=== PATIENT | male | born 1945 | race Caucasian/White ===

== ENCOUNTER 2018-04-03 06:38 | Inpatient (IN) ==
--- NOTE | 2018-04-02 21:56 | Discharge Summary ---
<Sung Colon - Last Filed: 04/03/18 07:54> Orders not resulted at time of discharge: Pending orders 04/03/18 00:01 XR shoulder complete RT [XR] Routine H/H [Hemoglobin and Hematocrit] [HEME] Routine 04/03/18 07:48 US anesthesia pain block [US] Routine Date of Encounter: 04/03/18 - Discharge Diagnosis (1) Obesity (BMI 30.0-34.9) Priority: Secondary Status: Chronic (2) Balance disorder Priority: Secondary Status: Chronic (3) Cardiomyopathy Priority: Secondary Status: Chronic Qualifiers: Cardiomyopathy type: unspecified Qualified Code(s): I42.9 - Cardiomyopathy , unspecified (4) Decreased dexterity Priority: Secondary Status: Chronic (5) PFO (patent foramen ovale) Priority: Secondary Status: Chronic (6) Rotator cuff arthropathy Priority: Primary Status: Chronic Qualifiers: Laterality: right Qualified Code(s): M12.811 - Other specific arthropathies , not elsewhere classified, right shoulder (7) COPD (chronic obstructive pulmonary disease) Priority: Secondary Status: Chronic Qualifiers: COPD type: unspecified COPD Qualified Code(s): J44.9 - Chronic obstructive pulmonary disease, unspecified (8) Cervical stenosis of spinal canal Priority: Secondary Status: Chronic (9) GERD (gastroesophageal reflux disease) Priority: Secondary Status: Chronic Qualifiers: Esophagitis presence: without esophagitis Qualified Code(s): K21.9 - Gastro -esophageal reflux disease without esophagitis (10) History of lung cancer Priority: Secondary Status: Chronic (11) Hyperlipidemia Priority: Secondary Status: Chronic Qualifiers: Hyperlipidemia type: mixed hyperlipidemia Qualified Code(s): E78.2 - Mixed hyperlipidemia (12) Hypertension Priority: Secondary Status: Chronic Qualifiers: Hypertension type: essential hypertension Qualified Code(s): I10 - Essential (primary) hypertension (13) Status post reverse total arthroplasty of right shoulder Priority: Primary Status: Acute - Hospital Course Hospital course: Mr. Pino is a 73 year old male - Time Spent with Patient Total time spent providing and/or coordinating discharge services: - Discharge Medications Home Medications: Atorvastatin Calcium [Lipitor] 20 mg PO DAILY 12/31/15 [History] Omeprazole [PriLOSEC] 40 mg PO DAILY 12/31/15 [History] Vit C/E/Zn/Coppr/Lutein/Zeaxan [Preservision Areds 2 Softgel] 1 each PO DAILY [History] Metoprolol XL (24 HR) Succ [Toprol Xl] 12.5 mg PO DAILY 06/02/16 [History] Albuterol Sulfate [Ventolin Hfa] 2 puff IH Q4H PRN 05/09/17 [History] Cholecalciferol (Vitamin D3) [Vitamin D3] 5,000 unit PO DAILY 05/09/17 [History] Latanoprost [Xalatan] 1 drop OP HS 05/09/17 [History] OxyCODONE Immed Rel [Roxicodone 5 MG] 5 mg PO Q6HR PRN 7 Days #28 tablet [Rx] Albuterol Neb [Proventil Neb] 2.5 mg IH Q4-6H PRN 04/03/18 [History] Aspirin [Adult Aspirin Regimen] 81 mg PO DAILY 04/03/18 [History] Gabapentin [Neurontin] 300 mg PO BID PRN 04/03/18 [History] Umeclidinium [place] [Incruse Ellipta] 1 puff IH DAILY 04/03/18 [History] Allergies/Adverse Reactions: 3 Allergy/AdvReac Type Severity Reaction Status Date / Time ceftriaxone [From Rocephin] Allergy elevated Verified 04/03/18 08:57 blood pressure Beta-Blockers AdvReac pulse Verified 04/03/18 08:57 (Beta-Adrenergic Bloc dropped steroids Allergy elevated Uncoded 04/03/18 08:57 pressures in eyes Primary care physician: Larry Ochoa MD - Patient Status Disposition: Home Health Service Condition: Good - Discharge Instructions Follow Up With: Larry Ochoa MD [Primary Care Provider] - Additional Instructions: Discharge Instructions: Total Shoulder Please call [facility] ([phone]), your Primary Care Physician, or report to the Emergency Room if you have any of the following symptoms: Nausea, vomiting, fever greater that 101.5, swelling, chest pain, shortness of breath, increased pain/redness/drainage/odor for your incision site, numbness/ tingling, or any other concerning symptoms. ACTIVITY: Always keep your arm in the sling. Do not raise your arm away from your body. Do not use your arm to help with getting in or out of bed. No weight bearing permitted. Only perform those exercises given to you by your therapist. Incentive Spirometer 10 times an hour. MEDICATIONS: Upon discharge resume your home medications. Take all the medications as prescribed. Take a stool softener if taking narcotic pain medications. Stool softeners are only effective if you drink enough fluids. Drink 6-8 glass of water or fluids a day, unless this is not allowed for another health problem. Despite using stool softeners, if you haven't had a bowel movement in 3 days, please switch to a gentle laxative. Gentle laxatives are sold over the counter. You should have a bowel movement within 24 hours, if not call the office. You will be discharged from the hospital with a prescription for pain medication. You are encouraged to decrease the use of narcotic pain medication as tolerated. Should you require a refill, please call the office. [facility] prescribes narcotic pain medication for only 4-6 weeks after surgery. If you require pain medication beyond this time period, you may be referred to your Primary Care Physician or to the Pain Clinic for further evaluation. Plan ahead for refills on pain medication as many narcotics either need to be picked up at the office or mailed. It is best to call 48-72 hours in advance of needing a prescription refill so you don't run out of medication. To help control the post-operative pain, you may take NSAIDs (Aleve,Advil, Motrin, Ibuprofen, Naprosyn) or Tylenol as prescribed on the bottle in addition to the pain medication. WOUND CARE: Leave the dressing on for 7-10 days. You may change the dressing if it becomes saturated greater than 50%. Do not get the dressing wet at anytime. Wash your hands with antibacterial soap, rinse and dry prior to any wound care. If you have sylvia the visiting nurse or rehab facility can remove the stapes 10-14 days after surgery and place steri-strips across the wound. Leave the steri-strips in place until they fall off on their own. You may let water from the shower run on top of the steri-strips. If you do not have a visiting nurse or rehab facility, you will need to return to the office at 10-14 days for the sylvia to be removed. If you have itching or redness around the dressing call the office. FOLLOW-UP: Please follow up with your surgeon in the orthopedic clinic, as scheduled <Amy Larsen - Last Filed: 04/03/18 15:23> Orders not resulted at time of discharge: Pending orders 04/03/18 00:01 XR shoulder complete RT [XR] Routine H/H [Hemoglobin and Hematocrit] [HEME] Routine Date of Encounter: 04/03/18 - Discharge Diagnosis (1) Rotator cuff arthropathy Priority: Primary Status: Chronic Qualifiers: Laterality: right Qualified Code(s): M12.811 - Other specific arthropathies , not elsewhere classified, right shoulder (2) Status post reverse total arthroplasty of right shoulder Priority: Secondary Status: Acute (3) History of lung cancer Priority: Secondary Status: Chronic (4) COPD (chronic obstructive pulmonary disease) Priority: Secondary Status: Chronic Comments: On 2 L O2 chronically - per [place] Qualifiers: COPD type: unspecified COPD Qualified Code(s): J44.9 - Chronic obstructive pulmonary disease, unspecified (5) GERD (gastroesophageal reflux disease) Priority: Secondary Status: Chronic Qualifiers: Esophagitis presence: without esophagitis Qualified Code(s): K21.9 - Gastro -esophageal reflux disease without esophagitis (6) Hyperlipidemia Priority: Secondary Status: Chronic Qualifiers: Hyperlipidemia type: mixed hyperlipidemia Qualified Code(s): E78.2 - Mixed hyperlipidemia (7) Cervical stenosis of spinal canal Priority: Secondary Status: Chronic (8) Hypertension Priority: Secondary Status: Chronic Qualifiers: Hypertension type: essential hypertension Qualified Code(s): I10 - Essential (primary) hypertension (9) Obesity (BMI 30.0-34.9) Status: Chronic (10) Cardiomyopathy Priority: Secondary Status: Chronic Comments: Per last report 12/2015: (3) Cardiomyopathy Current Visit: Yes Status: Acute Per Cardiology: Echocardiogram completed for concerns of possible CVA. EF 45%, no previous EF available. Does have mild diastolic dysfunction, mildly dilated left atrium, evidence of PFO with agitated saline contrast study, no significant valvular dysfunction, mild pulmonary hypertension. Last stress test reportedly 2008. Asymptomatic and euvolemic on exam. No ECG available for review, will obtain. Discussed with Dr. Oliveros, recs to f/u as outpatient, will s/o, re-consult PRN , patient and verbalized understanding and agree with plan. Qualifiers: Cardiomyopathy type: unspecified Qualified Code(s): I42.9 - Cardiomyopathy , unspecified (11) Tobacco use Priority: Secondary Status: Chronic - Hospital Course Hospital course: Mr. Pino is a 73 year old male - Time Spent with Patient Total time spent providing and/or coordinating discharge services: Primary care physician: Larry Ochoa MD <Camryn Miller - Last Filed: 04/04/18 20:32> Orders not resulted at time of discharge: Pending orders 04/03/18 07:48 US anesthesia pain block [US] Routine Date of Encounter: 04/04/18 Time of Encounter: 12:20 - Discharge Diagnosis (1) Status post reverse total arthroplasty of right shoulder Priority: Primary Status: Acute (2) Acute blood loss anemia Priority: Secondary Status: Acute (3) Dizziness Priority: Secondary Status: Acute (4) Balance disorder Priority: Secondary Status: Chronic (5) COPD (chronic obstructive pulmonary disease) Priority: Secondary Status: Chronic Qualifiers: COPD type: unspecified COPD Qualified Code(s): J44.9 - Chronic obstructive pulmonary disease, unspecified (6) Cardiomyopathy Priority: Secondary Status: Chronic Qualifiers: Cardiomyopathy type: unspecified Qualified Code(s): I42.9 - Cardiomyopathy , unspecified (7) Cervical stenosis of spinal canal Priority: Secondary Status: Chronic (8) Decreased dexterity Priority: Secondary Status: Chronic (9) GERD (gastroesophageal reflux disease) Priority: Secondary Status: Chronic Qualifiers: Esophagitis presence: without esophagitis Qualified Code(s): K21.9 - Gastro -esophageal reflux disease without esophagitis (10) History of lung cancer Priority: Secondary Status: Chronic (11) Hyperlipidemia Priority: Secondary Status: Chronic Qualifiers: Hyperlipidemia type: mixed hyperlipidemia Qualified Code(s): E78.2 - Mixed hyperlipidemia (12) Hypertension Priority: Secondary Status: Chronic Qualifiers: Hypertension type: essential hypertension Qualified Code(s): I10 - Essential (primary) hypertension (13) Obesity (BMI 30.0-34.9) Priority: Secondary Status: Chronic (14) PFO (patent foramen ovale) Priority: Secondary Status: Chronic (15) Rotator cuff arthropathy Priority: Secondary Status: Chronic Qualifiers: Laterality: right Qualified Code(s): M12.811 - Other specific arthropathies , not elsewhere classified, right shoulder (16) Tobacco use Priority: Secondary Status: Chronic - Hospital Course Hospital course: Mr. Pino is a 73 year old male ~status post - Total Shoulder Replacment Reverse, right with a history of HTN, COPD, GERD, dizziness/balance issue, cardiomyopathy, cervical stenosis, obesity, tobacco use, history of lung cancer. Patient had uneventful postoperative course. Stable for discharge. Patient seen at bedside, without complaints. A&O x 3 Afebrile, vital signs stable. Labs reviewed. H/H 9.9/30.4- stable, asymptomatic Pain control: adequate Participating in PT. All questions and concerns addressed. Educated on use of incentive spirometer. Encouraged ambulation and proper hydration. Patient educated on post-operative restrictions and post-operative care. Assessment and plan: Continue with postoperative care Discharge plan: Home , discharge today with home health therapy. - Time Spent with Patient Total time spent providing and/or coordinating discharge services: Date of admission: 04/03/18 10:36 Primary care physician: Larry Ochoa MD Consults: 04/03/18 10:49 Consult to Occupational Therapy [CONS] Routine Comment: post shoulder surgery Reason for Consult: post shoulder surgery Does patient have active BEDREST order?: No Is patient medically & hemodynamically stable?: Yes Consult to Physical Therapy [CONS] Routine Comment: post shoulder surgery Reason for Consult: post shoulder surgery Does patient have active BEDREST order?: No Is patient medically & hemodynamically stable?: Yes RT Post Op Consult [CONS] Routine 04/04/18 12:41 Consult to Self Propelled Mining Machine Operator [CONS] Routine Reason for SW Consult: home health on / - [place] per patient Discharging clinician: Sung Colon Anticipated date of discharge: 04/04/18 Labs on day of discharge: Labs from last 24 hours 04/04/18 02:04 Hgb 9.9 L D Hct 30.4 L - Impressions ITS Impressions Shoulder X-Ray 04/03/18 00:01 IMPRESSION: 1. Status post reverse right glenohumeral arthroplasty without hardware failure or fracture. 2. Gas in the soft tissues compatible with recent operative change. 3. No unexpected retained foreign body is evident. D/ / Chau Jama / Chau Jama Interpreting Provider: Chau Jama - Patient Status Overall status at discharge: patient is back to baseline - Diet and Activity Activity: as per physical therapy Diet: advance to your usual diet
[2018-04-03] MEDS ORDERED: Lidocaine -MPF 4% 5 ML AMPUL ONE (07:04)
[2018-04-03] MEDS ORDERED: Ondansetron 4 MG/2 ML VIAL ONE (07:05)
[2018-04-03] MEDS ORDERED: Lidocaine -MPF 2% 2 ML VIAL ONE (07:05)
[2018-04-03] MEDS ORDERED: Dexamethasone 4 MG/ML VIAL ONE (07:05)
[2018-04-03] MEDS ORDERED: *HR* Succinylcholine 200 MG/10 ML VIAL IVP ONE (07:05)
[2018-04-03] MEDS ORDERED: *HR* FentaNYL (PF) 100 MCG/2 ML VIAL ONE (07:06)
[2018-04-03] MEDS ORDERED: *HR* Propofol 200 MG/20 ML VIAL IVP ONE (07:06)
[2018-04-03] MEDS ORDERED: *HR* Midazolam HCl 2 MG/2 ML VIAL ONE (07:06)
[2018-04-03] MEDS ORDERED: *HR* PHENYLEPHRINE 1,000 MCG/10 ML SYRINGE IVP ONE (07:10)
[2018-04-03] MEDS ORDERED: Ringers Solution, Lactated 1,000 ML IVC SCH (07:15)
[2018-04-03] MEDS ORDERED: Clindamycin 900 MG/50 ML 900 MG/50 ML IV.SOLN IVPB ONE (07:17)
[2018-04-03] MEDS ORDERED: Bupivacaine/Clonidine Syringe 1 EACH SYRINGE ONE (07:46)
[2018-04-03] MEDS ORDERED: ROPIVACAINE HCL/PF 0.5% 30 ML VIAL ONE (07:46)
[2018-04-03] MEDS ORDERED: Acetaminophen IV 1,000 MG/100 ML INFUS..BTL IVPB ONE (07:47)
[2018-04-03] MEDS ORDERED: Famotidine 20 MG/2 ML VIAL IVP ONE (07:47)
[2018-04-03] MEDS: Albuterol 2.5 MG/3 ML NEBULIZER IH ONE ×2 (07:48→07:50)
--- NOTE | 2018-04-03 07:54 | History & Physical Report ---
Date of Encounter: 04/03/18 Time of Encounter: 07:54 24 Hour HP Update - Instructions Instructions: If the History and Physical is less than 30 days old and was completed prior to A.M. admission and or procedure and has NOT been updated on calendar day of procedure please complete this update prior to performing procedure. - Update Patient reports changes in Medical Condition: No Changes in examination, assessment, or condition: No Changes in Medication: No Preop tests/diagnostics Reviewed: Yes Surgery Remains Indicated: Yes Consent for Planned Operative Procedure(s) Verified: Yes - Pre-Operative Checklist Preoperative Checklist Indicated: No Prophylactic Antibiotic Ordered: Yes Is VTE Prophylaxis Indicated?: Yes
--- NOTE | 2018-04-03 07:54 | Anesthesia Evaluation PreOp ---
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 History: Denies Any Significant HX Other Medical History: Denies Any Significant HX Anesthesia History: No Prior Anesthetic Complications Alcohol Use: none Drug use: none Medications and Allergies Atorvastatin Calcium [Lipitor] 20 mg PO DAILY 12/31/15 [History] Lisinopril [Zestril] 10 mg PO DAILY 12/31/15 [History] Omeprazole [PriLOSEC] 40 mg PO DAILY 12/31/15 [History] Vit C/E/Zn/Coppr/Lutein/Zeaxan [Preservision Areds 2 Softgel] 1 each PO DAILY [History] Aspirin [Lo-Dose Aspirin EC] 81 mg PO DAILY 06/02/16 [History] Metoprolol XL (24 HR) Succ [Toprol Xl] 12.5 mg PO DAILY 06/02/16 [History] Pyridostigmine Br [Mestinon] 60 mg PO QID 06/02/16 [History] Albuterol Sulfate [Ventolin Hfa] 2 puff IH Q4H PRN 05/09/17 [History] Cholecalciferol (Vitamin D3) [Vitamin D3] 5,000 unit PO DAILY 05/09/17 [History] Latanoprost [Xalatan] 1 drop OP HS 05/09/17 [History] Prochlorperazine Maleate [Compazine] 10 mg PO Q6HR PRN 05/09/17 [History] Tiotropium [Spiriva] 1 puff IH DAILY 05/09/17 [History] Ondansetron HCl [Zofran] 4 mg PO Q8H PRN 05/28/17 [History] OxyCODONE Immed Rel [Roxicodone 5 MG] 5 mg PO Q6HR PRN 7 Days #28 tablet [Rx] 3 Allergy/AdvReac Type Severity Reaction Status Date / Time ceftriaxone [From Rocephin] Allergy elevated Verified 03/27/18 11:48 blood pressure Beta-Blockers AdvReac pulse Verified 03/27/18 11:48 (Beta-Adrenergic Bloc dropped steroids Allergy elevated Uncoded 03/27/18 11:48 pressures in eyes - Meds/Allergy Pre-op Review Medications Reviewed: Yes Allergies Reviewed: Yes Beta Blockers on Current Med List: Yes (Took Metoprolol today 0500) Anesthesia Results - Labs Laboratory Tests 03/27/18 03/27/18 03/27/18 12:02 12:02 12:02 Hgb 11.3 L Hct 35.6 L Plt Count 233 PT 10.4 INR 0.9 APTT 29.4 Sodium 142 Potassium 4.1 BUN 24 H Creatinine 1.05 - Imaging EKG: report reviewed (SR) Additional studies: ECHO EF 45% Anesthesia Exam O2 Sat Height 1.68 m Height 1.68 m Weight 89.811 kg Weight 89.811 kg O2 Sat by Pulse Oximetry 98 Vital Signs Temp Pulse Resp BP Pulse Ox 98.9 F 66 18 149/84 98 04/03/18 06:56 04/03/18 06:56 04/03/18 06:56 04/03/18 06:56 04/03/18 06:56 Height: 5'6 Weight: 198 lbs NPO (# of Hours): MN Pain Scale: 0 - HEENT Pupil (Motor): Pupils equal, EOMI Oral Opening: Less than or equal to 3 - HALFTONE OPERATOR LOC: Oriented HALFTONE OPERATOR Motor: Normal RUE, Normal LUE, Normal Face, Deficit RLE (generalized weakness), Deficit LLE HALFTONE OPERATOR Sensory: Normal: RUE, LUE, RLE, LLE, Face - Cardiac Rhythm: Regular Murmur: None JVD: No Carotid Bruit: No - Pulmonary Breath Sounds: bilateral Clear Respiratory Effort: Symmetrical Anesthesia Assess/Plan ASA Score: 4 (HTN COPD home oxygen) Modified [place] Scale for Level of Consciousness: Cooperative, oriented, and tranquil Anesthetic Plan: General, Regional Monitoring Plan: Standard Monitors Recovery Plan: PACU (Discussed GA and RA, agrees to proceed)
--- NOTE | 2018-04-03 08:38 | Anesthesia Procedures ---
Date of Encounter: 04/03/18 Time of Encounter: 08:12 Procedures: Anesthesia - Nerve Block Procedure Date: 04/03/18 Time: 08:12 Allergies/Adv Reactions: Rocephin, Betablockers, Steroids Pre-op Diagnosis: Right Shoulder Rotator Cuff Arthropathy Surgical Procedure: R Total shoulder Arthroplasty Checklist: Correct Patient Identifier, Correct procedure, History checked Correct side: Right Blood Thinner: No Monitor Applied: EKG, BP, Pulse Oximetry Supplemental Oxygen via Nasal Cannula (L/min): 2 Sedation: Versed (mg): 1 Sedation: Fentanyl (mcg): 1 Indication: Post Op Analgesia Pre-op Neuro Deficits: No Block Type: Supraclavicular, Other (Intermediate Cervical Plexus, Intercostobracheal) Catheter placed: No Sterile Technique: Yes Ultrasound used: Yes Anatomy identified: Yes Visual spread of Local: Yes Neuro Stimulation: No Blood on Needle Aspiration: No Smooth Injection of Local: Yes Pain with Injection of Local: No Prep: Chlorhexadine Needle: 22 x 50 mm Stimuplex Local: 0.25% Bupivicaine w/Clonidine 20 mcg/cc (5mL Intermediate Cervical Plexus , 15mL Intercostobracheal), Ropivacaine (30mL 0.5% Ropivacaine for Supraclavicular) Number of Attempts: 1 Complications: None/effective block Vitals: Vital Signs/O2 Sat/Glucose, Most Recent Temp Pulse Resp BP Pulse Ox 98.9 F 82 16 151/87 99 04/03/18 08:07 04/03/18 08:30 04/03/18 08:30 04/03/18 08:30 04/03/18 08:30
[2018-04-03] MEDS ORDERED: Ondansetron 4 MG/2 ML VIAL IVP ONE (09:06)
[2018-04-03] MEDS ORDERED: *HR* OxyCODONE/APAP 5/325 TABLET PO PRN ×2 (09:06→10:49)
[2018-04-03] MEDS ORDERED: *HR* FentaNYL (PF) 100 MCG/2 ML VIAL IVP PRN (09:06)
--- NOTE | 2018-04-03 09:33 | Orthopedic Operative Note ---
Date of procedure: 04/03/18 Pre-op diagnosis: Right shoulder cuff tear arthropathy Post-op diagnosis: same (Right shoulder arthritis) Procedure: Procedure: Total Shoulder Replacment Reverse, right Estimated blood loss: 100 cc Hardware: Metal and polyethylene replacement: Arthrex 28, +2, 30 mm screw glenoid baseplate, 2 4.5 screws. 2 5.5 screw, 42+4 glenosphere, 12 humeral stem , poly insert 6 Exam Under anesthesia: Full motion no instability Procedural Notes: Irreparable tear supraspinatus tendon, grade 4 arthritic changes humeral head. Operative procedure: The patient was brought to the operating room and placed on the operating room table. After general anesthesia was administered the operative shoulder was examined. Findings were noted. The patient was placed in the modified beachchair position. All pressure points were padded appropriately. And the head was stabilized in the neutral position. The operative extremity was prepped and draped in the sterile surgical fashion. The patient received IV antibiotics prior to skin incision. A standard deltopectoral approach was made to the operative shoulder. Incision was made to the skin and subcutaneous tissue,hemo stasis was obtained with Bovie cautery. Using careful blunt dissection the cephalic vein was identified and mobilized medially. The deltopectoral interval was developed and the clavipectoral fascia was incised. The subscap was released off the lesser tuberosity and tagged with #2 FiberWire suture subscap was irreparable. The humerus was dislocated patient noted to have irreparable tear supraspinatus tendon, and the humeral cut was made along the anatomic neck. Patient noted to have grade 4 arthritic changes humeral head. Anterior and posterior Bankart retractors were placed to expose the glenoid. The glenoid guide was seated and the centering hole was made. It was reamed with the appropriate reamer. 28 mm +2, 30 mm screw, was seated and secured with (2) 4.5 screws and 2 5.5 screw. The baseplate was irrigated and dried and the 42+4 Glenosphere was seated and secured with the Calzada taper. The Calzada taper was tested and found to be secure the humerus was redislocated and prepared with the diaphyseal reamers, followed by a broaching process up to the appropriate size 12 in the patient's anatomic version. The metaphyseal reamer was then utilized. Trial reduction found the shoulder to be relocatable. Trial components were removed and the 12 stem was impacted in place in the patient's anatomic version. Trial reduction found the shoulder to be relocatable and stable with the appropriate 6 Ksenia Trial component was removed and the implant was seated and secured the shoulder was reduced. The shoulder had excellent motion and excellent stability and no evidence of dislocation. The deep tissue was irrigated with pulse irrigation. The PA close the shoulder.. The deltopectoral interval was closed with a running #1 PDS suture, subcutaneous tissue was irrigated and closed with 0 PDS suture, the skin was closed with Dermabond. The patient was placed in a sterile dressing, abduction brace and extubated. The patient was then transferred to the recovery room in stable condition. Anesthesia: GETA Surgeon: Sung Colon Was there an assistant county engineer present: No Estimated blood loss (cc): 100 Condition: stable Disposition: PACU
--- NOTE | 2018-04-03 10:28 | Anesthesia Evaluation Post Op ---
Date of Encounter: 04/03/18 Time of Encounter: 10:30 - Vital Signs Vital Signs: Vital Signs/O2 Sat/Glucose, Most Current Temp Pulse Resp BP Pulse Ox 04/03/18 10:19 73 20 126/77 100 04/03/18 10:09 71 22 127/74 97 04/03/18 09:59 69 20 129/84 97 04/03/18 09:49 98.2 F 71 12 124/78 100 04/03/18 08:30 82 16 151/87 99 04/03/18 08:10 75 16 139/74 100 04/03/18 08:07 98.9 F 66 18 149/84 98 04/03/18 06:56 98.9 F 66 18 149/84 98 - Lungs Lungs: Clear Ascult./Percussion - Airway Airway: Non-obstructed - Cardiovascular Regular Rate - Mental Status Mental Status: Alert & Oriented, Answers Appropriately - Pain Pain Scale: 0 - Nausea Vomiting Nausea Vomiting: Not Present - Hydration Hydration: Tolerates oral liquids - Discharge PostOp Status: Transfer Patient to floor
[2018-04-03] MEDS ORDERED: MOM Conc 10 ML UD.LIQ PO PRN (10:49)
[2018-04-03] MEDS ORDERED: Ondansetron 4 MG/2 ML VIAL IVP PRN (10:49)
[2018-04-03] MEDS ORDERED: Naloxone 0.4 MG/ML INJ IVP PRN (10:49)
[2018-04-03] MEDS ORDERED: Sennosides 8.6 MG TABLET PO PRN (10:49)
[2018-04-03] MEDS ORDERED: traMADol 50 MG TABLET PO PRN (10:49)
[2018-04-03] MEDS ORDERED: Gabapentin 300 MG CAPSULE PO PRN (10:49)
[2018-04-03 11:14] LABS: Hematocrit 35.1 % (37.5-50.1); Hemoglobin 11.6 g/dL (12.9-16.9)
[2018-04-03] MEDS: Clindamycin 900 MG/50 ML 900 MG/50 ML IV.SOLN IVPB SCH ×2 (14:10→22:54)
--- NOTE | 2018-04-03 15:30 | Physician Discharge Referral ---
Home Health/Hosp Referral Info Transfer to: Home Health Attending Provider: Provider in Charge Post Discharge: PCP - Diagnosis (1) Rotator cuff arthropathy Status: Chronic (2) Status post reverse total arthroplasty of right shoulder Priority: Primary Status: Acute (3) History of lung cancer Status: Chronic (4) COPD (chronic obstructive pulmonary disease) Status: Chronic (5) GERD (gastroesophageal reflux disease) Status: Chronic (6) Hyperlipidemia Status: Chronic (7) Cervical stenosis of spinal canal Status: Chronic (8) Hypertension Status: Chronic (9) Obesity (BMI 30.0-34.9) Status: Chronic (10) Cardiomyopathy Status: Chronic (11) Tobacco use Status: Chronic - Respiratory Orders Oxygen / L per min (2L per NC - chronic) Smoking Cessation: Smoking cessation has been advised. For more information, call the [facility] Tobacco Quit Line at 1-356-GBEX-NOW. - Diet/Nutrition Diet/Nutrition Orders: Regular - Activity Activity Orders: Up ad valeria, Ambulate - Services Needed Following services are medically necessary services: Nursing, Home Health Aide, Physical Therapy, Occupational Therapy Other Treatments: Opsite dressing, leave intact until first post-operative visit. Zipline in place , plan to remove at post-operative day #14-16. If dressing becomes >50% saturated, contact office, remove dressing and place appropriate dressing in its place. Do not allow for dressing to get wet. Shoulder Precautions x 6 weeks. Apply cold therapy wrap 3-6x/day for 20 minutes at a time. Encourage ambulation throughout the day. Use Incentive spirometer 10x/hour. Elevate affected extremity above heart as tolerated. NWB to affected upper extremity x 6 weeks. Will remove brace at first post-operative appointment. OK to remove during PT/ OT and Home exercises. Continue 2 L O2 at home. - Transfer Medications Home Medications: Atorvastatin Calcium [Lipitor] 20 mg PO DAILY 12/31/15 [History] Omeprazole [PriLOSEC] 40 mg PO DAILY 12/31/15 [History] Vit C/E/Zn/Coppr/Lutein/Zeaxan [Preservision Areds 2 Softgel] 1 each PO DAILY [History] Metoprolol XL (24 HR) Succ [Toprol Xl] 12.5 mg PO DAILY 06/02/16 [History] Albuterol Sulfate [Ventolin Hfa] 2 puff IH Q4H PRN 10/23/17 [History] Cholecalciferol (Vitamin D3) [Vitamin D3] 5,000 unit PO DAILY 05/09/17 [History] Latanoprost [Xalatan] 1 drop OP HS 05/09/17 [History] OxyCODONE Immed Rel [Roxicodone 5 MG] 5 mg PO Q6HR PRN 7 Days #28 tablet [Rx] Albuterol Neb [Proventil Neb] 2.5 mg IH Q4-6H PRN 04/03/18 [History] Aspirin [Adult Aspirin Regimen] 81 mg PO DAILY 04/03/18 [History] Gabapentin [Neurontin] 300 mg PO BID PRN 04/03/18 [History] Umeclidinium [place] [Incruse Ellipta] 1 puff IH DAILY 04/03/18 [History] Allergies/Adverse Reactions: 3 Allergy/AdvReac Type Severity Reaction Status Date / Time ceftriaxone [From Rocephin] Allergy elevated Verified 04/03/18 08:57 blood pressure Beta-Blockers AdvReac pulse Verified 04/03/18 08:57 (Beta-Adrenergic Bloc dropped steroids Allergy elevated Uncoded 04/03/18 08:57 pressures in eyes Certification: Further, I certify that my clinical findings support that this patient is homebound (i.e. absences from home require considerable and taxing effort and are for medical reasons or restoration services or infrequently or short duration when for other reasons) because: Homebound Reason: Post-surgery restriction and or conditions limit ability to leave home Attestation: My signature below is to certify that this patient is under my care and that I, or nurse practitioner, or a physician's electrician station assistant working with me, has a face-to -face encounter with this patient.
[2018-04-03] MEDS ORDERED: Albuterol 2.5 MG/3 ML NEBULIZER IH PRN (16:00)
[2018-04-03] MEDS: *HR* Enoxaparin 30 MG/0.3 ML SYRINGE SQ SCH (17:17)
[2018-04-03] MEDS ORDERED: *HR* Enoxaparin 30 MG/0.3 ML SYRINGE SQ SCH (18:00)
[2018-04-03] MEDS: Ringers Solution, Lactated 1,000 ML IVC SCH (19:00)
[2018-04-03] MEDS ORDERED: Latanoprost 2.5 ML BOTTLE BOTH EYES SCH (21:00)
[2018-04-03] MEDS ORDERED: Temazepam 15 MG CAPSULE PO PRN (21:00)
[2018-04-03] MEDS: *HR* OxyCODONE Immed Rel 5 MG TABLET PO PRN (22:58)
[2018-04-04 02:39] LABS: Hematocrit 30.4 % (37.5-50.1)
[2018-04-04 02:41] LABS: Hemoglobin 9.9 g/dL (12.9-16.9)
[2018-04-04] MEDS: *HR* OxyCODONE Immed Rel 5 MG TABLET PO PRN ×2 (02:49→08:56)
[2018-04-04] MEDS: *HR* Enoxaparin 30 MG/0.3 ML SYRINGE SQ SCH (05:08)
--- NOTE | 2018-04-04 07:01 | Orthopedics Progress Note ---
Date of Encounter: 04/04/18 Time of Encounter: 07:00 - Assessment and Plan (1) Obesity (BMI 30.0-34.9) Current Visit: Yes Status: Chronic (2) Balance disorder Current Visit: No Status: Chronic (3) Cardiomyopathy Current Visit: No Status: Chronic Qualifiers: Cardiomyopathy type: unspecified Qualified Code(s): I42.9 - Cardiomyopathy , unspecified (4) Decreased dexterity Current Visit: No Status: Chronic (5) PFO (patent foramen ovale) Current Visit: No Status: Chronic (6) Rotator cuff arthropathy Current Visit: No Status: Chronic Qualifiers: Laterality: right Qualified Code(s): M12.811 - Other specific arthropathies , not elsewhere classified, right shoulder (7) COPD (chronic obstructive pulmonary disease) Current Visit: No Status: Chronic Qualifiers: COPD type: unspecified COPD Qualified Code(s): J44.9 - Chronic obstructive pulmonary disease, unspecified (8) Cervical stenosis of spinal canal Current Visit: No Status: Chronic (9) GERD (gastroesophageal reflux disease) Current Visit: No Status: Chronic Qualifiers: Esophagitis presence: without esophagitis Qualified Code(s): K21.9 - Gastro -esophageal reflux disease without esophagitis (10) History of lung cancer Current Visit: No Status: Chronic (11) Hyperlipidemia Current Visit: No Status: Chronic Qualifiers: Hyperlipidemia type: mixed hyperlipidemia Qualified Code(s): E78.2 - Mixed hyperlipidemia (12) Hypertension Current Visit: No Status: Chronic Qualifiers: Hypertension type: essential hypertension Qualified Code(s): I10 - Essential (primary) hypertension (13) Status post reverse total arthroplasty of right shoulder Current Visit: No Status: Acute (14) Acute blood loss anemia Current Visit: Yes Status: Acute Subjective Interval history: Patient was seen this morning doing well without complaints. Afebrile vital signs stable. Operative extremity: Neurovascularly intact Dressing clean dry and intact Calves nontender Assessment and plan: Continue with postoperative care Hematocrit 30 plan for discharge today Objective Vital signs: Vital Signs Temp Pulse Resp BP Pulse Ox 04/04/18 04:33 16 93 04/04/18 03:36 99.6 F 89 123/74 04/03/18 23:07 98.1 F 86 18 138/77 98 04/03/18 21:20 97 04/03/18 19:28 98.2 F 96 18 121/70 97 04/03/18 13:50 97.8 F 91 14 121/78 98 04/03/18 13:05 98.2 F 94 16 115/70 97 04/03/18 11:50 97.7 F 84 18 122/80 100 04/03/18 11:24 97.8 F 83 16 110/73 99 04/03/18 11:01 100 04/03/18 10:50 97.6 F 77 14 117/76 98 04/03/18 10:39 78 20 113/74 95 04/03/18 10:29 79 20 123/74 96 04/03/18 10:19 97.6 F 73 20 126/77 100 04/03/18 10:09 71 22 127/74 97 04/03/18 09:59 69 20 129/84 97 04/03/18 09:49 98.2 F 71 12 124/78 100 04/03/18 08:30 82 16 151/87 99 04/03/18 08:10 75 16 139/74 100 04/03/18 08:07 98.9 F 66 18 149/84 98 Intake and Output 04/03/18 04/03/18 04/04/18 15:59 23:59 07:59 Intake Total 290 / 290 100 / 100 Output Total 100 / 100 100 / 100 Balance -100 / -100 290 / 290 0 / 0 Intake: IV Fluids 50 / 50 50 / 50 Cleocin Premix 900 MG/50 ML 900 50 / 50 50 / 50 mg In 50 ml @ 50 mls/hr IVPB Q8H [facility] Rx#:[id number] Oral 240 / 240 50 / 50 Output: Urine 100 / 100 Estimated Blood Loss 100 / 100 Other: Meal Dinner Percent of Meal Consumed 65% # Voids 4 Weight 89.811 kg - Labs CBC & BMP: 04/04/18 02:04 Labs: Abnormal lab results Hgb 9.9 g/dL (12.9-16.9) L D 04/04/18 02:04 Hct 30.4 % (37.5-50.1) L 04/04/18 02:04 - VTE Documentation of Mechanical Device: Venous foot pump, device Consult Discharge Plan - Plan Referrals: Larry Ochoa MD [Primary Care Provider] -
[2018-04-04] MEDS: Ringers Solution, Lactated 1,000 ML IVC SCH (08:58)
[2018-04-04] MEDS ORDERED: Cholecalciferol (D-3) 1,000 UNIT TABLET PO SCH (09:00)
[2018-04-04] MEDS ORDERED: Metoprolol XL (24 HR) Succ 25 MG TAB.ER.24H PO SCH (09:00)
[2018-04-04] MEDS ORDERED: Aspirin Enteric Coated 81 MG Tablet PO SCH (09:00)
[2018-04-04] MEDS ORDERED: (Vit C/E/Zn/Coppr/Lutein/Zeaxan [Preservision Areds 2) PO SCH (09:00)
[2018-04-04] MEDS ORDERED: (Umeclidinium Bromide [Incruse Ellipta] 1 PUFF) IH SCH (10:00)
[2018-04-04 12:41] VITALS: BP 107/64
== END 2018-04-04 13:20 | disposition home health service (06) | DRG 483 ==
LOC: SAMDAY 06:38 → 3NENU 10:36
PROVIDERS: ADMIT Orthopaedic Surgery; ATTEND Orthopaedic Surgery

== ENCOUNTER 2018-04-05 13:51 | Observation (INO) ==
[2018-04-05] MEDS ORDERED: Aminoglycoside Consult 1 EACH MC ONE (15:17)
[2018-04-05] MEDS ORDERED: Naloxone 0.4 MG/ML INJ IVP PRN (16:34)
[2018-04-05] MEDS ORDERED: Vancomycin (wt based) 1,000 MG VIAL IVPB SCH (16:40)
[2018-04-05] MEDS ORDERED: Isovue-370 500 ML INFUS..BTL IV ONE (18:40)
[2018-04-05] MEDS ORDERED: D5% in Water 1,000 ML IVC PRN (18:43)
[2018-04-05] MEDS ORDERED: *HR* Dextrose 50 % in Water (Syg) 50 ML SYRINGE IVP PRN (18:43)
[2018-04-05] MEDS ORDERED: Dextrose Gel 15 GM/37.5 ML TUBE PO PRN ×2 (18:43)
--- NOTE | 2018-04-05 18:53 | Internal Med History&Physical ---
Date of Encounter: 04/05/18 Time of Encounter: 18:51 Internal Medicine - H&P: HPI Chief complaint: shortness of breath. productive cough. Admitted From: Long-term Nursing Facility Plans for Post Hospital Care: Transfer [facility] History of present illness: Mr. Pino is a 73 year old male past medical history significant for right total shoulder replacement about a week ago, mesothelioma diagnosed in 2017, patient underwent 6 rounds of chemotherapy last chemotherapy dose given in February 17, heart failure with reduced ejection fraction (E.F 45%), and HTN. Patient was transferred to this hospital from [facility] emergency room where patient was sent from rehabilitation after the patient reports generalized weakness, associated with shortness of breath and productive cough since Tuesday. Patient denied nausea, vomiting. Denied chest pain, diarrhea but reports abdominal discomfort and constipation. At [facility] ER patient was found to be febrile, and hypotensive for which the patient was transferred to this facility. Past Med Surg Social Fam HX - Past Medical History Medical history: cancer, COPD, glaucoma, hyperlipidemia, hypertension Additional medical history: lung cancer Psychiatric history: no psych history - Past Surgical History Surgical History: orthopedic, other, other Additional surgical history: rotator cuff repair, rt wrist, right carpal tunnel sx - Social History Smoking Status: Former smoker Smokeless Tobacco Status: No Alcohol use: none Drug use: none - Family History Sister Living Status: Still Living Hx Family Cardiac Disorders: Yes Mother Living Status: Cause of : heart attack Hx Family Cardiac Disorders: Yes (mi) Father Living Status: Internal Medicine - H&P: Meds Atorvastatin Calcium [Lipitor] 20 mg PO DAILY 12/31/15 [History] Omeprazole [PriLOSEC] 40 mg PO DAILY 12/31/15 [History] Vit C/E/Zn/Coppr/Lutein/Zeaxan [Preservision Areds 2 Softgel] 1 each PO DAILY [History] Metoprolol XL (24 HR) Succ [Toprol Xl] 12.5 mg PO DAILY 06/02/16 [History] Albuterol Sulfate [Ventolin Hfa] 2 puff IH Q4H PRN 05/09/17 [History] Cholecalciferol (Vitamin D3) [Vitamin D3] 5,000 unit PO DAILY 05/09/17 [History] Latanoprost [Xalatan] 1 drop OP HS 05/09/17 [History] OxyCODONE Immed Rel [Roxicodone 5 MG] 5 mg PO Q6HR PRN 7 Days #28 tablet [Rx] Aspirin [Adult Aspirin Regimen] 81 mg PO DAILY 04/03/18 [History] Gabapentin [Neurontin] 300 mg PO BID PRN 04/03/18 [History] Umeclidinium [place] [Incruse Ellipta] 1 puff IH DAILY 04/03/18 [History] 3 Allergy/AdvReac Type Severity Reaction Status Date / Time Beta-Blockers AdvReac pulse Verified 04/03/18 08:57 (Beta-Adrenergic Bloc dropped ceftriaxone [From Rocephin] AdvReac elevated Verified 04/05/18 14:02 blood pressure steroids AdvReac elevated Uncoded 04/05/18 14:03 pressures in eyes All Systems PM: A 10-system review of systems was performed and is negative for pertinent findings except as documented above in the HPI. - Constitutional Constitutional: chills, weakness, no anorexia, no falls, no lethargy, no malaise - EENT Eyes: no change in vision, no pain Nose, mouth and throat: no bleeding gums, no change in voice, no dry mouth, no sinus pain - Cardiovascular Cardiovascular ROS IM: no chest pain, no dyspnea on exertion, no irregular heart rhythm, no palpitations, no paroxysmal nocturnal dyspnea - Respiratory Respiratory: cough, dyspnea, wheezing, no excessive phlegm production - Gastrointestinal Gastrointestinal: abdominal pain, constipation, no diarrhea, no dysphagia, no excessive flatus, no hematemesis, no loose stools, no melena, no nausea - Genitourinary Genitourinary ROS male: no dysuria, no nocturia, no urinary frequency - Musculoskeletal Musculoskeletal ROS IM: no back pain - Integumentary Integumentary IM: no erythema, no rash - Neurological Neurological ROS: no abnormal movements, no focal weakness, no radicular pain - Psychiatric Psychiatric: no depression - Endocrine Endocrine IM: no cold intolerance, no flushing - Constitutional Vitals: Temp Pulse Resp BP Pulse Ox 99.3 F 86 15 99/60 97 04/05/18 16:43 04/05/18 16:43 04/05/18 16:43 04/05/18 16:43 04/05/18 16:43 Exam: General: Alert and oriented 3. In no acute distress. Cardiovascular: Normal S1 & S2, no rubs, murmurs or gallops. JVD about 6cm. Pulse regular. Lungs: Bilateral rales at the bases and expiratory wheezes, minimal crackles bilaterally. Abdomen: Soft, mild tenderness to superficial palpation in the suprapubic area, no rigidity or guarding.. Extremities: no edema or tenderness, no joint swelling or clubbing. Neurological: CN II-XII intact. Rest of the physical exam is non contributory - Assessment and plan (1) Sepsis Current Visit: No Status: Acute Assessment and plan: Possible pneumonia versus rule out UTI. Plan Blood and urine cultures A sputum culture and Gram stain Procalcitonin Lactic acid Started empirically on broad antibiotic coverage. Started on gentle IV fluid hydration with D5NS@75mls/hr Strict intake and output as patient has a history of CHF with an ejection fraction 45%. Serial troponin Abdomen and pelvis CT Qualifiers: Sepsis type: sepsis due to unspecified organism Qualified Code(s): A41.9 - Sepsis, unspecified organism (2) Hypotension Current Visit: Yes Status: Acute Assessment and plan: Most likely secondary to sepsis. Versus rule out cardiac causes. Plan of care as per #1 Qualifiers: Hypotension type: unspecified hypotension type Qualified Code(s): I95.9 - Hypotension, unspecified (3) COPD (chronic obstructive pulmonary disease) Current Visit: No Status: Chronic Assessment and plan: Scatter Expiratory wheezing, and rales at the bases bilaterally Plan started on nebs treatment scheduled Low-dose Solu-Medrol 40 mg IV twice a day On empiric antibiotic coverage. Incentive spirometry Qualifiers: COPD type: unspecified COPD Qualified Code(s): J44.9 - Chronic obstructive pulmonary disease, unspecified (4) Shortness of breath Current Visit: Yes Status: Acute Assessment and plan: Possible secondary to COPD exacerbation. Rule out pulmonary embolism as this patient is very high risk. Plan Follow-up CTA of the chest Oxygen by nasal cannula, titrate for O2 sat duration more than 92%. Incentive spirometry. (5) History of lung cancer Current Visit: No Status: Chronic Assessment and plan: History of mesothelioma. Diagnosed in October 2017. Recent underwent 8 sessions of chemotherapy, last one on February this year (6) Anemia Current Visit: Yes Status: Acute Assessment and plan: Possible anemia of chronic disease versus blood loss in the setting of recent surgery. No active signs of bleeding. Plan A.m. CBC Continue monitoring, we will consider transfusing if Hb <7 hct <23 or patient becomes symptomatic Qualifiers: Anemia type: unspecified type Qualified Code(s): D64.9 - Anemia, unspecified (7) DVT prophylaxis Current Visit: Yes Status: Acute Assessment and plan: Started on heparin 5000 units subcutaneous twice a day for DVT prophylaxis.. (8) Congestive cardiac failure Current Visit: Yes Status: Acute Assessment and plan: Not an acute exacerbation. Last ejection fraction 45%. Plan Hold diuresis, due to hypotension. Strict intake and output Qualifiers: Heart failure type: systolic Heart failure chronicity: chronic Qualified Code(s): I50.22 - Chronic systolic (congestive) heart failure - Time Spent With Patient Total time spent is greater than 50% in coordination of care (as documented) at patient's floor/unit and/or counseling patient: Greater than 35 minutes
[2018-04-05] MEDS: *HR* Heparin 5,000 UNIT/ML VIAL SQ SCH (19:05)
[2018-04-05] MEDS: Ipratropium/Albuterol Neb 3 ML IH SCH ×2 (19:29→23:39)
[2018-04-05] MEDS: MethylPREDNISolone 40 MG/ML VIAL IVP SCH (23:19)
[2018-04-05] MEDS: Piperacillin/Tazobactam 3.375 GM in 0.9 % Sodium Chloride Mini Bag 100 ML IVPB SCH (23:35)
[2018-04-06] MEDS: Insulin LISPRO 300 UNITS/3 ML VIAL SQ SCH ×6 (00:22→20:04)
[2018-04-06] MEDS: Ipratropium/Albuterol Neb 3 ML IH SCH ×6 (03:39→23:35)
[2018-04-06 03:43] LABS: Bilirubin,Urine Negative (Negative); Blood,Urine Negative (Negative); Clarity,Urine Clear (Clear); Color,Urine Yellow (Yellow); Glucose,Urine (UA) Normal (Normal); Ketones,Urine Negative (Negative); Leukocyte Esterase,Urine Negative (Negative); Nitrite,Urine Negative (Negative); PH,Urine 5.5 pH Units (5.0-8.0); Protein,Urine Negative (Neg-Trace); Specific Gravity,Urine 1.013 (1.010-1.025); Urobilinogen,Urine Normal (Normal)
[2018-04-06] MEDS: Piperacillin/Tazobactam 3.375 GM in 0.9 % Sodium Chloride Mini Bag 100 ML IVPB SCH (03:43)
[2018-04-06 05:25] LABS: Basophils % 0.1 %; Hematocrit 25.7 % (37.5-50.1); Immature Granulocytes % 0.5 % (0-4); Lymphocytes # 0.3 K/mcL (0.6-4.6); Lymphocytes % 2.9 %; Mean Corpuscular HGB Conc 32.3 g/dL (31.6-35.5); Mean Corpuscular Hemoglobin 33.9 pg (28.0-33.3); Mean Corpuscular Volume 104.9 fL (83.0-100.0); Mean Platelet Volume 9.4 fL (9.4-12.4); Monocytes # 0.5 K/mcL (0.0-1.3); Neutrophils # 8.7 K/mcL (1.6-8.9); Platelet Count 136 K/mcL (140-400); Red Blood Count 2.45 M/mcL (4.19-5.50); Red Cell Distribution Width 15.1 % (11.5-14.5); Segmented Neutrophils % 91.5 %
[2018-04-06 05:27] LABS: Hemoglobin 8.3 g/dL (12.9-16.9)
[2018-04-06 05:44] LABS: BUN/Creatinine Ratio 18 (6-26); Blood Urea Nitrogen 14 mg/dL (8-23); Calcium 9.6 mg/dL (8.6-10.3); Carbon Dioxide 27 mEq/L (23-29); Chloride 103 mEq/L (98-107); Glucose 211 mg/dL (70-105); Magnesium 1.7 mg/dL (1.6-2.6); Osmolality,Calculated 289 (280-300); Phosphorous 1.8 mg/dL (2.7-4.5); Potassium 4.3 mEq/L (3.5-5.1); Sodium 136 mEq/L (136-145); eGFR For Non-African Americans > 60 (> 60)
[2018-04-06] MEDS: MethylPREDNISolone 40 MG/ML VIAL IVP SCH ×3 (06:19→23:39)
[2018-04-06] MEDS: *HR* Heparin 5,000 UNIT/ML VIAL SQ SCH ×2 (06:19→17:04)
[2018-04-06] MEDS: D5% in 0.9% NACL 1,000 ML IVC SCH ×2 (08:09)
[2018-04-06] MEDS ORDERED: MethylPREDNISolone 40 MG/ML VIAL IVP SCH (08:40)
--- NOTE | 2018-04-06 08:46 | Internal Med Progress Note ---
Hospitalist Progress Note - Encounter Date of Encounter: 04/06/18 Time of Encounter: 08:43 - Subjective Interval History: Evaluated at bedside, he reports doing well and this morning but refers that overnight he was having some shortness of breath. Denies chest pain, abdominal pain, nausea or vomiting. No fever, or chills. - Exam Vitals: Temp Pulse Resp BP Pulse Ox 98.5 F 100 16 114/67 95 04/06/18 06:28 04/06/18 06:28 04/06/18 07:26 04/06/18 06:28 04/06/18 07:26 Exam: General: Alert and oriented 3. In no acute distress. Cardiovascular: RRR, Normal S1 & S2, no rubs, murmurs or gallops. JVD about 6cm. Lungs: Bronchospastic, scatter expiratory wheezing bilaterally, no crackles or rales. Abdomen: Soft, non-tender, no rigidity. NABS in all 4 quadrants. Extremities: no edema or tenderness. Neurological: Normal cognition. CN II-XII intact. Rest of the physical exam is non contributory - Assessment and Plan (1) COPD with acute exacerbation Current Visit: Yes Status: Acute Assessment and Plan: COPD exacerbation. scattered expiratory wheezing and bronchospasm on auscultation. CTA of the chest: No evidence of pulmonary embolism or acute pulmonary abnormality. Significantly decreased size of left pleural effusion. Plan Increase solu-medrol to 40mg/IV Q8HR continue Nebs Q4RT scheduled incentive spiriometry discontinue vancomycin and piperacillin/tazobatam started on levofloxacin 750mg/IV daily Urine negative for atypical organism sputum culture: no growth. f/u blood culture. so far no growth. pending final report. (2) Hypotension Current Visit: Yes Status: Resolved Assessment and Plan: Plan discontinue IV fluids will monitor clinically encourage PO intake (3) History of lung cancer Current Visit: No Status: Chronic Assessment and Plan: History of mesothelioma. Diagnosed in October 2017. Recent underwent 8 sessions of chemotherapy, last one on February this year. Plan outpatient follow up. (4) Anemia Current Visit: Yes Status: Acute Assessment and Plan: Possible anemia of chronic disease in the settings of Hx of lung CA s/p chemotherapy. Plan continue monitoring H&H will consider transfusing if Hb <7 or Hct <23 or patient becomes symptomatic. (5) DVT prophylaxis Current Visit: Yes Status: Acute Assessment and Plan: continue heparin 5000 units subQ BID for DVT prophylaxis (6) Congestive cardiac failure Current Visit: Yes Status: Acute Assessment and Plan: Last e.f 45%. no on acute exacerbation Plan strict intake and output IV fluids discontinued as BP is more stable will continue to hold on the beta joão and furosemide until BP is stable for at least 24 hours. water restriction to 2 litters a day. (7) Sepsis Current Visit: No Status: Ruled-out Assessment and Plan: has been r/o out. no active source of infection has been identify. Hypotension on presentation possible due to mild dehydration vs COPD exacerbation. - Summary of Assessment and Plan Summary of Assessment and Plan: Patient still broncospastic. Needs IV solu-medrol, IV antibiotics and Nebs. - Time Spent with Patient Total time spent is greater than 50% in coordination of care (as documented) at patient's floor/unit and/or counseling patient: Greater than 35 minutes Plan of Care Discussed with: patient (his , the nurse and the phamacist.) Internal Medicine: Result - Labs CBC & Chem 7: 04/06/18 05:12 04/06/18 05:12 Labs: Short CBC 04/06/18 Range/Units 05:12 WBC 9.6 (4.3-11.1) K/mcL Hgb 8.3 L (12.9-16.9) g/dL Hct 25.7 L (37.5-50.1) % Plt Count 136 L (140-400) K/mcL Neutrophils # 8.7 (1.6-8.9) K/mcL BMP 04/06/18 05:12 Sodium 136 Potassium 4.3 Chloride 103 Carbon Dioxide 27 BUN 14 Creatinine 0.78 Glucose 211 H Calcium 9.6 Cardiac Enzymes 04/05/18 Range/Units 18:58 Troponin I < 0.03 (< 0.04) ng/mL Urine 04/06/18 Range/Units 03:24 Urine Color Yellow (Yellow) Urine Clarity Clear (Clear) Urine pH 5.5 (5.0-8.0) pH Units Ur Specific [place] 1.013 (1.010-1.025) Urine Protein Negative (Neg-Trace) mg/dL Urine Glucose (UA) Normal (Normal) mg/dL - Impressions Impressions Chest CTA 04/05/18 18:40 IMPRESSION: No evidence of pulmonary embolism or acute pulmonary abnormality. Significantly decreased size of left pleural effusion. D/ / Derian Mckeon MD / Derian Mckeon MD Interpreting Provider: Derian Mckeon MD Abdomen/Pelvis CT 04/05/18 18:42 IMPRESSION: No acute process identified. D/ / Derian Mckeon MD / Derian Mckeon MD Interpreting Provider: Derian Mckeon MD Consult Discharge Plan - Plan Referrals: Larry Ochoa MD [Primary Care Provider] - (2) Hypotension Qualifiers: Hypotension type: unspecified hypotension type Qualified Code(s): I95.9 - Hypotension, unspecified (4) Anemia Qualifiers: Anemia type: unspecified type Qualified Code(s): D64.9 - Anemia, unspecified (6) Congestive cardiac failure Qualifiers: Heart failure type: systolic Heart failure chronicity: chronic Qualified Code(s): I50.22 - Chronic systolic (congestive) heart failure (7) Sepsis Qualifiers: Sepsis type: sepsis due to unspecified organism Qualified Code(s): A41.9 - Sepsis, unspecified organism
[2018-04-06] MEDS ORDERED: Pantoprazole 40 MG VIAL IVP SCH (09:00)
[2018-04-06] MEDS: Levofloxacin 750 MG/150 ML 750 MG/150 ML BAG IVPB SCH (09:27)
[2018-04-07] MEDS: Ipratropium/Albuterol Neb 3 ML IH SCH ×6 (03:44→23:35)
[2018-04-07] MEDS: *HR* Heparin 5,000 UNIT/ML VIAL SQ SCH ×2 (05:17→17:14)
[2018-04-07] MEDS ORDERED: Ondansetron ODT 4 MG TAB.RAPDIS SL PRN (06:07)
--- NOTE | 2018-04-07 08:35 | Internal Med Progress Note ---
Hospitalist Progress Note - Encounter Date of Encounter: 04/07/18 Time of Encounter: 08:33 - Subjective Interval History: Evaluated at bedside, stated that he is closed to his baseline, denies shortness of breath or chest pain. Reports feeling stronger today, denied nausea, or vomiting. - Exam Vitals: Temp Pulse Resp BP Pulse Ox 97.8 F 94 14 108/62 94 04/07/18 07:20 04/07/18 07:20 04/07/18 07:34 04/07/18 07:04/07/18 07:34 Exam: General: Alert and oriented 3. In no acute distress. Cardiovascular: RRR, Normal S1 & S2, no rubs, murmurs or gallops. JVD about 6cm. Lungs: Good air entry bilaterally, minimal wheezing in the left lower lobe. no crackles or rales. Abdomen: Soft, non-tender, no rigidity. NABS in all 4 quadrants. Extremities: No edema or tenderness. Neurological: CN II-XII intact. Rest of the physical exam is non contributory - Assessment and Plan (1) COPD with acute exacerbation Current Visit: Yes Status: Acute Assessment and Plan: Improved. Good air entry bilaterally, with minimal wheezing in the left lower lobe. Plan Decrease Solu-Medrol to 40 mg IV twice a day. Continue with DuoNeb's Incentive spirometry Continue levofloxacin 750 mg IV daily (2) History of lung cancer Current Visit: No Status: Chronic Assessment and Plan: History of mesothelioma. Diagnosed in October 2017. Recent underwent 8 sessions of chemotherapy, last one on February this year. Plan outpatient follow up. (3) Congestive cardiac failure Current Visit: Yes Status: Acute Assessment and Plan: Not an acute exacerbation. Plan Strict intake and output We will start patient on low-dose furosemide 20 mg IV daily. Daily weight (4) Anemia Current Visit: Yes Status: Acute Assessment and Plan: H&H is stable. No signs of active bleeding. We will continue to monitor. (5) DVT prophylaxis Current Visit: Yes Status: Acute Assessment and Plan: On heparin 5000 units subcutaneous twice a day for DVT prophylaxis. (6) Hyperglycemia Current Visit: Yes Status: Acute Assessment and Plan: Nondiabetic. Most likely due to steroids Plan started on low-dose Levemir 5 units at bedtime, and lispro before meals and sliding scale. (7) Hypertension Current Visit: No Status: Chronic Assessment and Plan: Blood pressure ranging from 108-105 Plan We will continue to hold patient home antihypertensive medication. - Summary of Assessment and Plan Summary of Assessment and Plan: Patient needs to remain in the hospital for 24 more hours to receive IV steroids plus IV antibiotics. Potential discharge tomorrow. - Time Spent with Patient Total time spent is greater than 50% in coordination of care (as documented) at patient's floor/unit and/or counseling patient: Internal Medicine: Result - Labs CBC & Chem 7: 04/07/18 08:32 04/06/18 05:12 Consult Discharge Plan - Plan Referrals: Larry Ochoa MD [Primary Care Provider] - (3) Congestive cardiac failure Qualifiers: Heart failure type: systolic Heart failure chronicity: chronic Qualified Code(s): I50.22 - Chronic systolic (congestive) heart failure (4) Anemia Qualifiers: Anemia type: unspecified type Qualified Code(s): D64.9 - Anemia, unspecified (7) Hypertension Qualifiers: Hypertension type: essential hypertension Qualified Code(s): I10 - Essential (primary) hypertension
[2018-04-07] MEDS: Levofloxacin 750 MG/150 ML 750 MG/150 ML BAG IVPB SCH (08:43)
[2018-04-07] MEDS ORDERED: MethylPREDNISolone 40 MG/ML VIAL IVP SCH (09:00)
[2018-04-07] MEDS ORDERED: Insulin DETEMIR 100 UNIT/ML X5UNITS SQ SCH (09:00)
[2018-04-07] MEDS: MethylPREDNISolone 40 MG/ML VIAL IVP SCH ×2 (09:03→17:14)
[2018-04-07 09:08] LABS: Hematocrit 26.2 % (37.5-50.1); Hemoglobin 8.3 g/dL (12.9-16.9); Mean Corpuscular HGB Conc 31.7 g/dL (31.6-35.5); Mean Corpuscular Hemoglobin 33.5 pg (28.0-33.3); Mean Corpuscular Volume 105.6 fL (83.0-100.0); Mean Platelet Volume 9.5 fL (9.4-12.4); Platelet Count 171 K/mcL (140-400); Red Blood Count 2.48 M/mcL (4.19-5.50)
[2018-04-07] MEDS: Insulin LISPRO 300 UNITS/3 ML VIAL SQ SCH ×4 (09:35→20:16)
[2018-04-07] MEDS: Furosemide 20 MG/2 ML VIAL IVP SCH (10:45)
[2018-04-07] MEDS: Insulin DETEMIR 100 UNIT/ML X5UNITS SQ SCH ×2 (17:11→20:13)
[2018-04-08] MEDS: Ipratropium/Albuterol Neb 3 ML IH SCH ×2 (03:44→09:33)
[2018-04-08 04:30] LABS: Hematocrit 27.6 % (37.5-50.1); Hemoglobin 8.7 g/dL (12.9-16.9); Immature Granulocytes % 0.6 % (0-4); Lymphocytes # 0.4 K/mcL (0.6-4.6); Mean Corpuscular HGB Conc 31.5 g/dL (31.6-35.5); Mean Corpuscular Hemoglobin 34.1 pg (28.0-33.3); Mean Corpuscular Volume 108.2 fL (83.0-100.0); Mean Platelet Volume 9.7 fL (9.4-12.4); Monocytes # 0.6 K/mcL (0.0-1.3); Monocytes % 6.9 %; Neutrophils # 7.8 K/mcL (1.6-8.9); Platelet Count 157 K/mcL (140-400); Red Blood Count 2.55 M/mcL (4.19-5.50); Segmented Neutrophils % 88.5 %
[2018-04-08 04:52] LABS: BUN/Creatinine Ratio 29 (6-26); Blood Urea Nitrogen 22 mg/dL (8-23); Calcium 10.1 mg/dL (8.6-10.3); Carbon Dioxide 33 mEq/L (23-29); Chloride 104 mEq/L (98-107); Glucose 186 mg/dL (70-105); Osmolality,Calculated 298 (280-300); Sodium 140 mEq/L (136-145); eGFR For Non-African Americans > 60 (> 60)
[2018-04-08] MEDS: *HR* Heparin 5,000 UNIT/ML VIAL SQ SCH (05:58)
[2018-04-08] MEDS: MethylPREDNISolone 40 MG/ML VIAL IVP SCH (05:58)
[2018-04-08 07:07] VITALS: BP 117/66
[2018-04-08] MEDS: Insulin LISPRO 300 UNITS/3 ML VIAL SQ SCH (07:55)
[2018-04-08] MEDS: Furosemide 20 MG/2 ML VIAL IVP SCH (07:56)
[2018-04-08] MEDS: Insulin DETEMIR 100 UNIT/ML X5UNITS SQ SCH (08:37)
--- NOTE | 2018-04-08 08:45 | Discharge Summary ---
- NOTES TO OUTPATIENT PROVIDER Notes to Outpatient Provider: Follow-up with your primary care physician within a week of discharge. Follow-up with orthopedics as scheduled. Date of Encounter: 04/08/18 Time of Encounter: 08:41 - Discharge Diagnosis (1) COPD with acute exacerbation Priority: Primary Status: Resolved (2) History of lung cancer Priority: Secondary Status: Chronic (3) Congestive cardiac failure Priority: Secondary Status: Chronic Qualifiers: Heart failure type: systolic Heart failure chronicity: chronic Qualified Code(s): I50.22 - Chronic systolic (congestive) heart failure (4) Anemia Priority: Secondary Status: Chronic Qualifiers: Anemia type: unspecified type Qualified Code(s): D64.9 - Anemia, unspecified (5) DVT prophylaxis Priority: Secondary Status: Chronic (6) Hyperglycemia Priority: Secondary Status: Resolved (7) Hypertension Priority: Secondary Status: Chronic Qualifiers: Hypertension type: essential hypertension Qualified Code(s): I10 - Essential (primary) hypertension (8) Chronic respiratory failure Priority: Secondary Status: Acute Assessment and Plan: On 3 L of oxygen by nasal cannula. Qualifiers: Respiratory failure complication: hypoxia Qualified Code(s): J96.11 - Chronic respiratory failure with hypoxia Hospital course: Mr. Pino is a 73 year old male past medical history significant for right total shoulder replacement about a week ago, mesothelioma diagnosed in 2017, patient underwent 6 rounds of chemotherapy last chemotherapy dose given in February 17, heart failure with reduced ejection fraction (E.F 45%), and HTN. Patient transferred to the hospital from [facility] emergency room, where patient was found to be hypotensive. Patient reported productive cough and subjective fever at 3 days duration before presentation to the emergency room. Patient was resuscitated with IV fluid and treated empirically with broad- spectrum antibiotic. Sepsis was ruled out, as well as pulmonary embolism. Patient was diagnosed with COPD exacerbation and treated with IV steroids and antibiotics. Patient's symptoms resolved, and patient is hemodynamically stable to be discharged home. Recommended to continue levofloxacin 750 for 5 more days. On discharge with a Medrol Dosepak. - Time Spent with Patient Total time spent providing and/or coordinating discharge services: Greater than 30 minutes - Discharge Medications Prescriptions: Ipratropium/Albuterol Neb [Duoneb] 3 ml IH [id number] 30 Days #5 inhsol Furosemide [Lasix] 20 mg PO DAILY 30 Days #30 tablet levoFLOXacin [Levaquin] 750 mg PO DAILY 5 Days #5 tablet Home Medications: Atorvastatin Calcium [Lipitor] 20 mg PO DAILY 12/31/15 [History] Omeprazole [PriLOSEC] 40 mg PO DAILY 12/31/15 [History] Vit C/E/Zn/Coppr/Lutein/Zeaxan [Preservision Areds 2 Softgel] 1 cap PO DAILY [History] Metoprolol XL (24 HR) Succ [Toprol Xl] 12.5 mg PO DAILY 06/02/16 [History] Albuterol Sulfate [Ventolin Hfa] 2 puff IH Q4H PRN 05/09/17 [History] Cholecalciferol (Vitamin D3) [Vitamin D3] 5,000 unit PO DAILY 05/09/17 [History] Latanoprost [Xalatan] 1 drop OP HS 05/09/17 [History] OxyCODONE Immed Rel [Roxicodone 5 MG] 5 mg PO Q6HR PRN 7 Days #28 tablet [Rx] Aspirin [Adult Aspirin Regimen] 81 mg PO DAILY 04/03/18 [History] Gabapentin [Neurontin] 300 mg PO BID PRN 04/03/18 [History] Umeclidinium [place] [Incruse Ellipta] 1 puff IH DAILY 04/03/18 [History] Furosemide [Lasix] 20 mg PO DAILY 30 Days #30 tablet 04/08/18 [Rx] Ipratropium/Albuterol Neb [Duoneb] 3 ml IH [id number] 30 Days #5 inhsol 04/08/18 [ Rx] levoFLOXacin [Levaquin] 750 mg PO DAILY 5 Days #5 tablet 04/08/18 [Rx] Allergies/Adverse Reactions: 3 Allergy/AdvReac Type Severity Reaction Status Date / Time Beta-Blockers AdvReac pulse Verified 04/03/18 08:57 (Beta-Adrenergic [place]oc dropped ceftriaxone [From Rocephin] AdvReac elevated Verified 04/05/18 14:02 blood pressure steroids AdvReac elevated Uncoded 04/05/18 14:03 pressures in eyes Date of admission: 04/05/18 15:16 Primary care physician: Larry Ochoa MD Consults: 04/05/18 17:42 Consult to [facility] [CONS] Routine Reason for SW Consult: [facility] home o2 2lpm, nebulizer, HH to be set up, s/p right TSR - Constitutional Vitals: Temp Pulse Resp BP Pulse Ox 97.5 F L 86 18 117/66 100 04/08/18 07:00 04/08/18 07:00 04/08/18 07:00 04/08/18 07:00 04/08/18 07:00 Exam: General: Alert and oriented 3. In no acute distress. Cardiovascular: RRR, Normal S1 & S2, no rubs, murmurs or gallops. JVD about 6cm. Lungs: Good air entry bilaterally, clear to auscultation bilaterally, no wheezing, no crackles or rales. Abdomen: Soft, non-tender, no rigidity. NABS in all 4 quadrants. Extremities: No edema or tenderness. Neurological: CN II-XII intact. Rest of the physical exam is non contributory - Patient Status Disposition: Home, Self-Care Condition: Good Functional capacity at discharge: independent ambulation Overall status at discharge: patient is back to baseline - Discharge Instructions Follow Up With: Larry Ochoa MD [Primary Care Provider] - - Diet and Activity Activity: resume usual activities as tolerated Diet: advance to your usual diet
[2018-04-08] MEDS ORDERED: levoFLOXacin 750 MG TABLET PO SCH (09:00)
== END 2018-04-08 09:47 | disposition home or self-care (01) ==
LOC: 2ANU → SUATTDRO 23:05
PROVIDERS: ADMIT Internal Medicine; ATTEND Internal Medicine